=== PATIENT | male | born 1995 | race Asian ===

== ENCOUNTER 2017-07-23 01:24 | Emergency (ER) | payer OTHER ==
[2017-07-23 01:28] VITALS: BP 139/83
== END 2017-07-23 01:53 | disposition left against medical advice (07) ==
LOC: ED 01:24
DX: R10.9 Unspecified abdominal pain (principal); Z53.21 Procedure and treatment not carried out due to patient leaving prior to being seen by health care provider

== ENCOUNTER 2017-08-14 12:26 | Emergency (ER) | payer OTHER | END 2017-08-14 12:33 | disposition left against medical advice (07) | LOC: ED 12:26 | DX: R10.9 Unspecified abdominal pain (principal); Z53.21 Procedure and treatment not carried out due to patient leaving prior to being seen by health care provider ==